=== PATIENT | female | born 1945 | race Caucasian/White ===

== ENCOUNTER → 2022-10-23 | Outpatient (REF) | payer OTHER, SELFPAY ==
[2022-10-23 10:05] LABS: Hematocrit 26.9 % (37-47); Hemoglobin 8.1 g/dL (12.0-15.0); Mean Corp Hgb Conc 30.1 g/dL (32-36); Mean Corpuscular Hgb 29.8 pg (27.0-32.0); Mean Corpuscular Volume 98.9 fL (81-99); Mean Platelet Vol. 10.4 fl (6.2-12.0); Platelet Count 403 K/mm3 (150-450); RBC Distribution Width CV 16.5 % (11.6-14.6); RBC Distribution Width SD 59.4 fl (35.1-43.9); Red Blood Count 2.72 M/mm3 (4.2-5.4); White Blood Count 9.4 K/mm3 (4.4-11.0)
[2022-10-23 10:19] LABS: Anion Gap 5 (5-15); BUN 34 mg/dL (7-18); BUN/Creat Ratio 51.9 RATIO (10-20); Calcium,Total 9.6 mg/dL (8.5-10.1); Chloride 104 mmol/L (98-107); Creatinine, Serum 0.66 mg/dL (0.55-1.02); EST Glomerular Filtration Rate 93 mL/min (>60); Est Glom Filt Rate - Afr Amer 113 mL/min (>60); Glucose 136 mg/dL (74-106); Potassium 4.2 mmol/L (3.5-5.1); Sodium Level 137 mmol/L (136-145)
== END ==
LOC: OLS.SANC 06:50
PROVIDERS: Visit Provider Internal Medicine
DX: J95.822 Acute and chronic postprocedural respiratory failure (principal); J44.9 Chronic obstructive pulmonary disease, unspecified; I10 Essential (primary) hypertension; D64.9 Anemia, unspecified
CPT/HCPCS: 36415; 80048; 85027

== ENCOUNTER → 2022-10-27 | Outpatient (REF) | payer OTHER, SELFPAY ==
[2022-10-27 08:45] LABS: Vitamin B12 455 pg/mL (211-911); Vitamin D,25 Hydroxy 34.9 ng/mL
[2022-10-27 08:49] LABS: Thyroid Stim Hormone (TSH) 1.89 uIU/mL (0.358-3.74)
== END ==
LOC: OLS.SANC 05:00
PROVIDERS: Visit Provider Internal Medicine
DX: E55.9 Vitamin D deficiency, unspecified (principal); Z79.899 Other long term (current) drug therapy
CPT/HCPCS: 36415; 82306; 82607; 82746; 84443

== ENCOUNTER → 2022-10-31 | Outpatient (REF) | payer OTHER, SELFPAY ==
[2022-10-31 08:01] LABS: Anion Gap 4 (5-15); BUN 27 mg/dL (7-18); Calcium,Total 9.7 mg/dL (8.5-10.1); Chloride 103 mmol/L (98-107); Creatinine, Serum 0.64 mg/dL (0.55-1.02); EST Glomerular Filtration Rate 95 mL/min (>60); Est Glom Filt Rate - Afr Amer 115 mL/min (>60); Glucose 115 mg/dL (74-106); Hematocrit 27.9 % (37-47); Hemoglobin 8.6 g/dL (12.0-15.0); Mean Corp Hgb Conc 30.8 g/dL (32-36); Mean Corpuscular Hgb 30.1 pg (27.0-32.0); Mean Corpuscular Volume 97.6 fL (81-99); Mean Platelet Vol. 10.1 fl (6.2-12.0); Platelet Count 462 K/mm3 (150-450); Potassium 4.2 mmol/L (3.5-5.1); RBC Distribution Width CV 16.3 % (11.6-14.6); RBC Distribution Width SD 58.4 fl (35.1-43.9); Red Blood Count 2.86 M/mm3 (4.2-5.4); Sodium Level 136 mmol/L (136-145); White Blood Count 9.2 K/mm3 (4.4-11.0)
== END ==
LOC: OLS.SANC 05:00
PROVIDERS: Visit Provider Internal Medicine
DX: I48.91 Unspecified atrial fibrillation (principal); I11.0 Hypertensive heart disease with heart failure; I50.9 Heart failure, unspecified; J44.9 Chronic obstructive pulmonary disease, unspecified
CPT/HCPCS: 36415; 80048; 85027

== ENCOUNTER → 2022-11-07 | Outpatient (REF) | payer OTHER, SELFPAY ==
[2022-11-07 08:00] LABS: Hematocrit 28.5 % (37-47); Hemoglobin 8.6 g/dL (12.0-15.0); Mean Corp Hgb Conc 30.2 g/dL (32-36); Mean Corpuscular Hgb 29.1 pg (27.0-32.0); Mean Corpuscular Volume 96.3 fL (81-99); Mean Platelet Vol. 10.7 fl (6.2-12.0); Platelet Count 362 K/mm3 (150-450); RBC Distribution Width CV 14.8 % (11.6-14.6); RBC Distribution Width SD 52.7 fl (35.1-43.9); Red Blood Count 2.96 M/mm3 (4.2-5.4); White Blood Count 8.4 K/mm3 (4.4-11.0)
[2022-11-07 08:19] LABS: Anion Gap 1 (5-15); BUN 25 mg/dL (7-18); BUN/Creat Ratio 39.1 RATIO (10-20); Calcium,Total 9.9 mg/dL (8.5-10.1); Chloride 102 mmol/L (98-107); Creatinine, Serum 0.64 mg/dL (0.55-1.02); EST Glomerular Filtration Rate 96 mL/min (>60); Est Glom Filt Rate - Afr Amer 116 mL/min (>60); Glucose 104 mg/dL (74-106); Potassium 4.1 mmol/L (3.5-5.1); Sodium Level 135 mmol/L (136-145)
== END ==
LOC: OLS.SANC 05:00
PROVIDERS: Visit Provider Internal Medicine
DX: I11.0 Hypertensive heart disease with heart failure (principal); I50.9 Heart failure, unspecified
CPT/HCPCS: 36415; 80048; 85027

== ENCOUNTER → 2022-11-13 | Outpatient (REF) | payer OTHER, SELFPAY ==
[2022-11-13 08:26] LABS: Hematocrit 28.2 % (37-47); Hemoglobin 8.5 g/dL (12.0-15.0); Mean Corp Hgb Conc 30.1 g/dL (32-36); Mean Corpuscular Hgb 28.4 pg (27.0-32.0); Mean Corpuscular Volume 94.3 fL (81-99); Mean Platelet Vol. 11.3 fl (6.2-12.0); Platelet Count 282 K/mm3 (150-450); RBC Distribution Width CV 14.4 % (11.6-14.6); RBC Distribution Width SD 48.8 fl (35.1-43.9); Red Blood Count 2.99 M/mm3 (4.2-5.4); White Blood Count 7.8 K/mm3 (4.4-11.0)
[2022-11-13 08:36] LABS: Anion Gap 0 (5-15); BUN 25 mg/dL (7-18); BUN/Creat Ratio 42.8 RATIO (10-20); Chloride 100 mmol/L (98-107); Creatinine, Serum 0.58 mg/dL (0.55-1.02); EST Glomerular Filtration Rate 106 mL/min (>60); Est Glom Filt Rate - Afr Amer 129 mL/min (>60); Glucose 96 mg/dL (74-106); Potassium 4.4 mmol/L (3.5-5.1); Sodium Level 135 mmol/L (136-145)
== END ==
LOC: OLS.SANC 05:00
PROVIDERS: Visit Provider Internal Medicine
DX: I48.91 Unspecified atrial fibrillation (principal); D64.9 Anemia, unspecified; I11.0 Hypertensive heart disease with heart failure; I50.9 Heart failure, unspecified; J44.9 Chronic obstructive pulmonary disease, unspecified
CPT/HCPCS: 36415; 80048; 85027

== ENCOUNTER → 2022-11-20 | Outpatient (REF) | payer OTHER, SELFPAY ==
[2022-11-20 08:25] LABS: Hematocrit 28.8 % (37-47); Hemoglobin 8.6 g/dL (12.0-15.0); Mean Corp Hgb Conc 29.9 g/dL (32-36); Mean Corpuscular Hgb 27.8 pg (27.0-32.0); Mean Corpuscular Volume 93.2 fL (81-99); Mean Platelet Vol. 11.5 fl (6.2-12.0); Platelet Count 284 K/mm3 (150-450); RBC Distribution Width CV 14.2 % (11.6-14.6); RBC Distribution Width SD 48.5 fl (35.1-43.9); Red Blood Count 3.09 M/mm3 (4.2-5.4); White Blood Count 7.6 K/mm3 (4.4-11.0)
[2022-11-20 08:40] LABS: Anion Gap 5 (5-15); BUN 26 mg/dL (7-18); BUN/Creat Ratio 43.7 RATIO (10-20); Calcium,Total 9.9 mg/dL (8.5-10.1); Chloride 100 mmol/L (98-107); EST Glomerular Filtration Rate 104 mL/min (>60); Est Glom Filt Rate - Afr Amer 126 mL/min (>60); Glucose 115 mg/dL (74-106); Potassium 4.4 mmol/L (3.5-5.1); Sodium Level 139 mmol/L (136-145)
== END ==
LOC: OLS.SANC 05:00
PROVIDERS: Visit Provider Internal Medicine
DX: I11.0 Hypertensive heart disease with heart failure (principal); I50.9 Heart failure, unspecified; J44.9 Chronic obstructive pulmonary disease, unspecified; I48.91 Unspecified atrial fibrillation
CPT/HCPCS: 36415; 80048; 85027

== ENCOUNTER → 2022-11-21 | Outpatient (REF) | payer OTHER, SELFPAY ==
[2022-11-21 08:56] LABS: Hematocrit 28.8 % (37-47); Hemoglobin 8.9 g/dL (12.0-15.0); Mean Corp Hgb Conc 30.9 g/dL (32-36); Mean Corpuscular Hgb 28.7 pg (27.0-32.0); Mean Corpuscular Volume 92.9 fL (81-99); Mean Platelet Vol. 11.2 fl (6.2-12.0); Platelet Count 298 K/mm3 (150-450); RBC Distribution Width CV 14.4 % (11.6-14.6); RBC Distribution Width SD 48.6 fl (35.1-43.9); White Blood Count 9.2 K/mm3 (4.4-11.0)
[2022-11-21 09:09] LABS: Anion Gap 6 (5-15); BUN 31 mg/dL (7-18); BUN/Creat Ratio 47.1 RATIO (10-20); Calcium,Total 9.6 mg/dL (8.5-10.1); Chloride 98 mmol/L (98-107); Creatinine, Serum 0.66 mg/dL (0.55-1.02); EST Glomerular Filtration Rate 93 mL/min (>60); Est Glom Filt Rate - Afr Amer 112 mL/min (>60); Glucose 109 mg/dL (74-106); Sodium Level 136 mmol/L (136-145)
== END ==
LOC: OLS.SANC 05:00
PROVIDERS: Visit Provider Internal Medicine
DX: J44.9 Chronic obstructive pulmonary disease, unspecified (principal); I10 Essential (primary) hypertension
CPT/HCPCS: 36415; 80048; 85027